=== PATIENT | female | born 1955 | race Caucasian/White ===

== ENCOUNTER 2020-12-14 11:57 | Emergency (ER) | payer BC ==
[~2020-12-14] VITALS: Ht 162.6 cm; Wt 51.3 kg
[~2020-12-14 11:57] MED LIST: CEFDINIR300 MG PO; CERAVE PO; PROZAC PO
[2020-12-14 12:27] LABS: ABSOLUTE NEUTROPHILS 7.8 thou/uL (1.4-8.2); BASOPHILS 0.6 % (0.0-2.0); EOSINOPHILS 0.4 % (0.0-3.0); HEMATOCRIT 37.5 % (37.0-47.0); HEMOGLOBIN 12.5 gm/dL (12.0-15.0); LYMPHOCYTES 10.3 % (24.0-44.0); MCH 36.3 pg (26.0-34.0); MCHC 33.3 g/dL (28.0-37.0); MCV 109.1 fL (80.0-100.0); MONOCYTES 9.3 % (1.0-8.0); PLATELET COUNT 375 thou/uL (150-400); POLYS 79.4 % (36.0-66.0); RBC 3.44 mil/uL (4.20-5.00); RDW 13.7 % (10.5-14.5); WBC 9.9 thou/uL (4.0-11.0)
[2020-12-14 12:34] LABS: CALCIUM 8.7 mg/dL (8.5-10.1); CREATININE 0.7 mg/dL (0.6-1.0); POTASSIUM 3.7 mmol/L (3.5-5.1)
[2020-12-14 12:39] LABS: URINE BILIRUBIN NEGATIVE (Negative); URINE BLOOD NEGATIVE (Negative); URINE CLARITY CLEAR; URINE COLOR YELLOW; URINE GLUCOSE-RANDOM* TRACE (Negative); URINE KETONES TRACE (Negative); URINE LEUKOCYTES-REFLEX TRACE (Negative); URINE NITRITE-REFLEX NEGATIVE (Negative); URINE PROTEIN (DIPSTICK) NEGATIVE (Negative); URINE SPECIFIC GRAVITY >= 1.030 (1.005-1.035); URINE UROBILINOGEN 0.2 E.U./dl (0.2-1.0)
[2020-12-14 13:36] LABS: ANISOCYTOSIS 1+; MACROCYTES 2+; PLATELET ESTIMATE NORMAL
[2020-12-14 16:23] VITALS: BP 94/62
--- NOTE | 2020-12-14 16:27 | EKG ---
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 : 1955 Requested By: Sandeep Vanessa Order Number: [id number] MD: Asad Elizabeth Measurements Intervals [facility] Rate: 97 P: MS: QRS: 24 QRSD: 118 T: -2 QT: 378 QTc: 480 Interpretive Statements Artifact, NSR Nonspecific intraventricular conduction delay Borderline low voltage, extremity leads Artifact in lead(s) III,V1,V2,V4,V5,V6 No previous ECG available for comparison Electronically Signed On 12-14-2020 16:27:21 CDT by Asad Elizabeth [email or web address] <ELECTRONICALLY SIGNED> By: Asad Elizabeth MD, [facility] 12/14/20 1627 1211 121 Asad Elizabeth MD, FACC /EPI
[2020-12-14] MEDS ORDERED: ATIVAN0.5 M1 PO (16:59)
[2020-12-14] MEDS ORDERED: VITAMIN D21250 MC1 PO (16:59)
[2020-12-14] MEDS ORDERED: SUPER THERAVIT1 EACH PO (17:05)
== END 2020-12-14 16:23 ==
LOC: ER 11:57
PROVIDERS: Nurse Practitioner
DX: R46.89 Other symptoms and signs involving appearance and behavior (principal); R44.0 Auditory hallucinations; R44.1 Visual hallucinations; Z90.49 Acquired absence of other specified parts of digestive tract; Z88.0 Allergy status to penicillin; Z79.899 Other long term (current) drug therapy

== ENCOUNTER 2020-12-14 15:37 | Inpatient (IN) | payer BC ==
[~2020-12-14] VITALS: Ht 162.6 cm; Wt 49.5 kg
[2020-12-14] MEDS ORDERED: VITAMIN D21250 MC1 PO (16:59)
[2020-12-14] MEDS ORDERED: ATIVAN0.5 M1 PO (16:59)
[2020-12-14] MEDS ORDERED: SUPER THERAVIT1 EACH PO (17:05)
--- NOTE | 2020-12-14 18:55 | NUR ---
1625 PATIENT ADMITED TO [facility] UNIT VIA CART. PATIENT ASSISTED X2 WITH TRANSFER TO BED. VS 117/88, 103, 18, 97.4, 98%. WT. 101.8. PATIENT LYING IN BED. LS CLEAR, BS ACTIVE. SKIN NOTED WITH BRUISING TO RIGHT FA AND LEFT ARM. WOUND NOTED TO COCCYX AREA PICTURES TAKEN. PATIENT CLEANED UP AND GOWN CHANGED. SMEAR OF BM NOTED. PATIENT SOFT SPOKEN AT TIMES ABLE TO ANSWER QUESTIONS. PATIENT CONFUSED, A & O X1 SELF ONLY UNAWARE OF WHY IN HOSPITAL. HAS A HX OF BREAST CA BILATERALLY. MDD,HTN, DYSPHASIA, SEASONAL ALLERGIES, HX OF TIA, ENCEPHALOPATHY. PATIENT RIGID WITH SLOW MOVEMENT. DENIES PAIN. VISUAL HALLUCINATION NOTED WITH PATIENT REACHING OUT GRABBING THE AIR. PATIENT STATES "I WAS TRYING TO CLOSE THAT". FALL RISK PRECATIONS IN PLACE WITH ARM BAND ON AND BED ALARM ON. PATIENT ATTEMPTS TO GET OUT OF BED. PATIENT TRANSFERED TO MONICA CHAIR WITH LAP BUDDING IN FRONT. DPJAVI CHRISTIE CALLED, LEFT MESSAGE DUE TO NO ANSWER. REPORT GIVEN TO NIGHT NURSE.
[2020-12-14 19:33] VITALS: BP 96/66
[2020-12-15 05:49] LABS: FOLIC ACID 7.6 ng/mL (8.6-58.9)
[2020-12-15 09:32] VITALS: BP 120/69
[2020-12-15 09:50] LABS: CHOLESTEROL 166 mg/dL (<200); HDL CHOLESTEROL 35 mg/dL (>40); LDL CHOLESTEROL 108 mg/dL (<100); TC:HDL 4.7 Ratio (Not establshd); TRIGLYCERIDE 115 mg/dL (<150); VLDL 23 mg/dL (<40)
--- NOTE | 2020-12-15 10:36 | NUR ---
WOUND CONSULT; ASSESSMENT OF THE SACRUM REVEALED ISOLATED ERYTHEMA TO THE SACRUM. THE AREA BLANCHES QUICKLY. NO OTHER AREAS OF CONCERN. RECOMMENDATIONS; -OFFLOADING Q2H AT A MINIMUM. -BARRIER WIPE TO THE SACRAL AREA, COVER WITH A BORDER FOAM, CHANGE M/W/F PRN DISCUSSED WITH MAIKEL
--- NOTE | 2020-12-15 12:31 | NUR ---
PATIENT CARE ASSUMED AT 0700 - IN DINING OROZCO IN MONICA CHAIR. PATIENT RESTLESS BUT CALM. EVALUATED BY OT/PT AND DETERMINED FINGER FOOD EASIER FOR PATIENT TO FEED SELF. SWALLOWING DIFFICULT WELL AND MEDICATIONS ADMINISTERED CRUSHED IN PUDDING THIS MORNING. PATIENT ASSESSED BY WOUND CARE AND SACRAL AREA DRESSING APPLIED. ADVISED BLANCHABLE AND NOT STAGED. AREA ON RIGHT BUTTOCK OLD WOUND THAT HAS HEALED - VISITED AND BROUGHT DPOA PAPERWORK. PLACED IN CHART. BECAME AGITATED WITH HIM - BLAMING HIM FOR HER ADMITTANCE TO OUR FACILITY. ASKED HIM TO LEAVE. PATIENT WORKED WITH OT - ADVISED WEIGHT BEARING ON LOWER EXTREMITIES AND CAN PULL SELF UP WITH BAR FOR SUPPORT. VITAL SIGNS STABLE THIS MORNING AT 120/69 WITH PULSE OF 88.
[2020-12-16 00:11] VITALS: BP 120/69
--- NOTE | 2020-12-16 02:08 | NUR ---
Assumed pt care at 1900. pt was oriented to self.Assessments completed, vss. took meds crushed with yogurt, no difficulty noted. pt was confused. There was no sign of acuted distress noted upon assessments. no sign of si/hi noted. compliant with care and medical aides teacher. At this time pt is sleeping. will continue to monitor pt
[2020-12-16 09:14] VITALS: BP 102/68; BP 92/68
[2020-12-16 09:35] LABS: URINE BILIRUBIN NEGATIVE (Negative); URINE BLOOD NEGATIVE (Negative); URINE CLARITY SL CLOUDY; URINE COLOR YELLOW; URINE GLUCOSE-RANDOM* NEGATIVE (Negative); URINE KETONES NEGATIVE (Negative); URINE LEUKOCYTES-REFLEX TRACE (Negative); URINE NITRITE-REFLEX NEGATIVE (Negative); URINE PROTEIN (DIPSTICK) TRACE (Negative)
--- NOTE | 2020-12-16 14:14 | NUR ---
Received awake on bed. Due medications given as prescribed- crushed and given with pudding; able to swallow w/o difficulty. Vital signs stable. With L sided weakness- assisted in ADLs. Falls bundle in place. On regular diet- assisted and encouraged in eating and drinking; aspiration precaution observed. On room air. Incontinent of bowel and bladder- checked frequently and changed as needed. Urine specimen needed for urinalysis- straight cath done as per protocol; done w/o difficulty- specimen obtained and sent to lab. With scar from prev ulcer at sacrum. No IV noted. No complains and signs of pain; chest pain, crushing sensation and heaviness. To continue monitoring patient.
[2020-12-16 19:53] VITALS: BP 94/65
--- NOTE | 2020-12-17 05:14 | NUR ---
PATIENT AOX1 CONFUSED AND FORGETFUL. PATIENT HAD NOT VOIDED FOR >8 HOURS BLADDER SCAN DONE, PATIENT HAD 390ML CALLED MAINTENANCE FITTER NEW ORDER TO STRAIGHT CATH X1. PATIENT NEEDS MAXIMUM ASSISTANCE WITH ADL, BED MOBILITY, TRANSFER AND TOILETING. PATIENT IN DAY ROOM ASLEEP AT THIS TIME BREATHING REGULAR AND UNLABOURED.
[2020-12-17 09:54] VITALS: BP 116/94
[2020-12-17 11:16] VITALS: BP 116/94
--- NOTE | 2020-12-17 11:25 | NUR ---
ASSUMED CARE AT 0700 THIS MORNING. PT. SITTING IN RECLINING CHAIR. SHE WAS PLEASANT AND COOPERATIVE WITH TAKING HER MEDICATIONS. THEY WERE CRUSHED AND PUT IN APPLESAUCE. SHE NEEDS HELP WITH TOILETING, EATING AND DAILY CARE. WAS ON THE UNIT DURING MORNING MEETING. NO NEW PROBLEMS NOTED OR VOICED.
[2020-12-17 19:19] VITALS: BP 101/67
--- NOTE | 2020-12-18 03:59 | NUR ---
ASSUMED CAER OF PT AT SHIFT CHANGE. PT IS AOX1 AND IS CONFUSED. FALL PRECAUTION IN PLACE. NEEDS MUST BE ANTICIPATED. ASSESSMENT CHARTED. PT IS RETAINING URINE >500ML. PT WAS STRAIIGHT CATHED PER ORDER. PT TOOK ALL HS MEDS CRUSHED IN PUDDING. PT APPERS TO BE COMFORTABLE. VSS AND NO S/S OF ACUTE DISTRESS. WILL CONTINUE TO MONITOR.
[2020-12-18 09:12] VITALS: BP 80/55
[2020-12-18 12:07] VITALS: BP 80/55
[2020-12-18 12:26] VITALS: BP 80/55
--- NOTE | 2020-12-18 12:34 | NUR ---
ASSUMED CARE AT 0700 THIS MORNING. PT. IN RECLINING CHAIR. SHE IS SITTING QUIETLY TALKING TO HERSELF. SHE INITIALLY WAS SHOWING SOME AGITATION WITH THAT. SHE TOOK HER MEDS WITH SOME COERSION FROM STAFF. SHE ALSO GOT MOST OF HER EGGS DOWN FROM BREAKFAST. SHE UNDERSTANDS CONVERSATION OF STAFF. SHE CAN ANSWER OUR QUESTIONS WITHOUT PROBLEMS. SHE SLIDES DOWN IN HER CHAIR REQUIRING STAFF TO HELP HER SIT UP IN THE CHAIR. WILL CONTINUE TO MONITOR.
--- NOTE | 2020-12-18 14:05 | NUR ---
BENNY was able to talk to The Pt's Moncho. A family meeting was scheduled for 12/20/20 @ 1400. Moncho informed the couple currently live at [facility] in [place]. Moncho was hopefully that [facility] memory care could be a possiblity for placement when the Pt discharges. BENNY informed that a referral can always be sent to the facility. Moncho was happy to hear that and informed the Pt would be private pay. Benny will continue to follow up
--- NOTE | 2020-12-18 14:13 | NUR ---
SW reached out to the admissions department at [facility]. They are aware of this Pt. They informed that if Pt is in need of skilled or memory care they are able to accept upon discharge. SW will continue to follow up.
[2020-12-18 17:06] VITALS: BP 95/68
[2020-12-18 20:01] VITALS: BP 102/76
[2020-12-18 21:00] VITALS: BP 102/76
--- NOTE | 2020-12-19 02:15 | NUR ---
Assumed pt care at 1900. Pt sleepy but easily arousable on the reclining chair,often sliding off the chair. VSS. Denied pain on assessment. Took HS meds crushed in icecream with a lot of prompts. Pt constipated with hard Bm around rectum,palpated around sides and able to get it out;Lg hard formed. Lactulose given as ordered. Incontinent of B&B. Resting in bed w/o any distress,will continue to monitor pt.
[2020-12-19 08:58] VITALS: BP 97/61
--- NOTE | 2020-12-19 11:29 | NUR ---
Alert and orientated to name only. Denies SI/HI. Calm, cooperative and compliant. Denies SI/HI. Breath sounds clear. Reg HR auscultated. Color pale pink with brisk capillary refill and palpable perhipheral pulses. Brief dry. Active bowel sounds over soft, flat abdomen. Large firm, constipated stool this AM per report. Redness over lower back and in sacrum area, cleaned with NS. Placed in gerichair with chair alarm in place.
--- NOTE | 2020-12-19 14:33 | NUR ---
Per ASPHALT PAVING SUPERINTENDENT, pt has voided X 3 today. Bladder scan done: 138 cc. Small brown soft stool per brief with flatulence. Cleaned and zguard applied. Turned to L in recliner and positioned with pillows. No s/o distress.
[2020-12-19 19:02] VITALS: BP 92/58
--- NOTE | 2020-12-20 04:58 | NUR ---
12-19-20 CARE TRANSFERRED 1899 OBSERVED PT SITTING MONICA CHAIR IN DAY ROOM. LATER PT AAOX1, VSS, RR EVEN AND NONLABORED ON RA, OBSERVED NO S/S OF PAIN AND NO SI/HI BEHAVIORS. PT ARTICULATES FEW WORDS, BUT HAS BEEN CLAM AND COOPERATIVE, PT DRANK 240ML OF WATER. DURING MEDICATION ADMIN PT HAD NO DIFFICULTIES TAKING WHOLE WITH PUDDING AND ATE 100%; LATER PT STATED SHE WAS HUNGRY AND SHE ATE ICE CREAM CUP. LATER PT WAS ASSISTED TO ROOM AND BLADDER SCANNED 119ML AND NOTED YELLOW URINE IN BRIEF AND SCANT AMOUNT OF POOP, PT WAS CLEAN WITH SOAP AND RINSED WITH WATER AND BARRIER CREAM APPLIED, NOTED REDNESS IN COCCYX AREA. PT HAS BEEN LEFT OPEN TO AIR ON CHUX. LATER NOTED PT RESTING WITH EYES CLOSED. ZERO S/S OF ACUTE DISTRESS NOTED, PT WILL CONTINUE TO BE MONITOR PER [facility] PROTOCOL.
[2020-12-20 08:00] VITALS: BP 92/58
--- NOTE | 2020-12-20 11:18 | NUR ---
WOUND CARE F/U ASSISTED BACK TO ROOM W/ INSURANCE SALES ASSISTANT LYNN RUSHING TO ASSESS SACRAL AREA. PT AWAKE, COOPERATIVE, AREA SLIGHTLY ATNOLIN SACRAL AREA, BLANCHES WELL. NO S/S INFECTION NO DRAINAGE, ZGUARD APPLIED, PER STAFF PT INCONT AT TIMES, SITTING ON GEL CUSION RECOMMENDATIONS; CONT PRESSURE RELIEF MEASURES, OFF LOADING, NOT SITTING LONG PERIODS, CONT CURRENT TX PROTECTIVE CREAM BID AND PRN INSURANCE SALES ASSISTANT AWARE
--- NOTE | 2020-12-20 12:25 | NUR ---
Alert and orientated to name only. Confused speech and also repeating things heard in dining room. Denies SI/HI. Ambulates with walker with assistance with steady gait. Breath sounds clear. Reg HR auscultated. Color pink with brisk capillary refill and palpable peripheral pulses. Brief dry. Bladder scanned at 1100, 191-202. States she does not need to toilet at this time. Active bowel sounds over soft, flat abdomen. Reddened area mid back and in sacral area. Cleaned and Zguard applied.
--- NOTE | 2020-12-20 13:40 | NUR ---
RT Progress Note- Memo's presence in recreation therapy groups since her admission to [facility] has been limited. Memo's energy level has been poor and she has been asleep for many groups. It is noted however that throughout the last two review days, Memo has been alert for groups though she does not actively engage. BLOCK BREAKER will continue to encourage pts attendance and further participation throughout the next review period.
[2020-12-20 19:02] VITALS: BP 88/62
--- NOTE | 2020-12-20 21:26 | H ---
[facility] [place] [address] HISTORY AND PHYSICAL Name: SKINNY CHRISTIE Room #: 519B-B ADM IN M.R.#: [id number] Admission: 12/14/20 Attend Phys: Adele Mustafa DO Discharge: Date of : 59 Report #: [id number] THIS REPORT FOR: cc: Richard Abdul MD, Christopher B. MD Kerstein, Andrew H. DO ~ DOC #: [id number] ADELE Mustafa DO DATE OF SERVICE: 12/15/2020 ATTENDING PSYCHIATRIST: Adele Mustafa DO RENTAL CLERK: Jordana Hood NP, and Darin Claire M.D. and his hospitalist team. SOURCES OF INFORMATION: Telephone conversation with the yesterday in the emergency room, with nurse practitioner, Sandeep Vanessa. The patient is a very poor historian and could not give any reasonable history or information to me today. We have limited records from the [facility], which happens to be very close to [facility]. CHIEF COMPLAINT: Unspecified. HISTORY OF PRESENT ILLNESS: This is a 65-year-old female, [facility] She reportedly had been there in the 2-3 day range. On 12/14/2020, her nurse practitioner, Shon Castillo, who collaborates with Dr. Richard Abdul, did a gisell that she lacks mental capacity to make independent legal medical and financial decisions. Medications from [facility] were cefdinir, ergocalciferol, lorazepam, multivitamin, . Her history from the nursing facility were encephalopathy complicated with alcohol withdrawal. Reportedly, prior to admission to [facility], she spent 2 weeks or so at [facility] for alcohol detoxification. She has a history of major depression, generalized anxiety disorder, dysphagia, history of unspecified malignant neoplasm, drug-induced tremor, vitamin D deficiency, anorexia. There is also a presence of a urogenital implant. Her is her DPOAMoncho with the other documentation. His number is #[phone]. I called him today and was not able to reach him. ALLERGIES: PENICILLINS. Additional information from the patient's ER stay is she has [facility] [address] [place] [address] HISTORY AND PHYSICAL Name: PRATIKSKINNY Room #: 519B-B ADM IN M.R.#: [id number] Admission: 12/14/20 Attend Phys: Adele Mustafa DO Discharge: Date of : 59 Report #: [id number] history of alcoholism, several hallucinations and falls over the last 2 days. Haylie wanted to send for a psychiatric evaluation. Reportedly, she had been drinking "three" shots a day. In the ER yesterday, I discussed with the over the phone if it indeed had been several weeks since she had any alcohol. I explained that the treatment would be different if she was in acute alcohol withdrawal. PAST SURGICAL HISTORY: Cholecystectomy, bladder sling, tracheostomy. MEDICAL HISTORY: Stroke, breast cancer. SOCIAL HISTORY: No recreational drug use. Smoking history was denied, but patient is able to accurately report. REVIEW OF SYSTEMS: Impossible with this patient. Weight is 45.586 kilos, BMI 17.3. Grossly negative physical exam. EKG showed atrial fibrillation, rate of 97. Non-STEMI. LABORATORY DATA: Sodium 143, potassium 3.7, chloride 108, bicarbonate 27, anion gap 8, BUN 7, creatinine 0.7, estimated GFR 85, glucose 92, calcium 8.7. Ammonia less than 10. White cell count 9.9, H&H 12.5 and 37.5, MCV very high at 109, platelet count 375. She did have some anisocytosis and macrocytic cells. COVID-19 Abott test was negative. Urinalysis had trace leukocyte esterase, trace glucose, trace ketones, otherwise negative. MEDICATIONS: Currently in the hospital, trazodone 50 mg p.o. at bedtime, Haldol 1 mg p.o. 3 times a day, vitamin daily, folic acid daily, vitamin D 5000 international units daily, pantoprazole 40 mg p.o. daily, cefdinir 300 mg p.o. b.i.d. Otherwise, house PRNs. Additional history is limited with this patient. Medical history, hypertension; CVA, unclear time; dysphagia. She does have a possible decubitus wound, but was checked by wound care and was non-blanchable on her sacrum; history of breast cancer, status post bilateral mastectomy; also, severe protein-calorie malnutrition. PSYCHIATRIC HISTORY: Includes alcoholism, major depressive disorder. Also, she is obviously psychotic grossly at this point, not making sense, not able to communicate. PHYSICAL EXAMINATION: [facility] [address] [place] [address] HISTORY AND PHYSICAL Name: SKINNY CHRISTIE Room #: 519B-B ADM IN Tiki#: [id number] Admission: 12/14/20 Attend Phys: Adele Mustafa DO Discharge: Date of : 59 Report #: [id number] VITAL SIGNS: Today, temperature 36.0, pulse 88, respirations 18, BP 120/69, O2 sat 97%. MUSCULOSKELETAL: Nonambulatory in a Kia chair. MENTAL STATUS EXAMINATION: This is a poorly nourished ill-appearing female appearing much older than stated age. Attention impaired. Concentration impaired. Speech nonsensical. Frequently told me it was when it was Friday. Unable to state the month for sure. Attention and concentration impaired. Speech, increased rate. mood- unspecified, affect constricted Thought process linear, but very limited. Thought content disorganized, relative poverty of thought. No psychomotor agitation, no psychomotor retardation. Unable to question well for suicidality, homicidality, or auditory, visual, tactile hallucinations, but internal stimuli are possible. Memory is noted to be impaired, not formally tested. Insight impaired. Judgment impaired. Fund of knowledge well below average. FORMULATION: A 65-year-old female sent over from [facility] with complications, likely relating to alcoholism and complicated alcohol withdrawal. DIAGNOSES: At this time, unspecified psychosis, rule out alcohol-induced persisting psychosis, rule out major neurocognitive disorder due to alcoholism. Medical comorbidities are multiple and include history of hypertension, CVA, dysphagia, breast cancer, encephalopathy. PLAN: The patient is admitted to geriatric psychiatry. She is incapacitated for healthcare decisions. Her DPOA is enacted. Her , Moncho, made admission decision. We will evaluate and stabilize her. I have her on an increased dose of Haldol today. We will see how she eats and does over the next several days. Estimated length of stay 10 to 14 days. The patient may need a memory care placement if she does not improve. Voicemail left for . STRENGTHS: Insured, DPOA. WEAKNESSES: Alcoholism, likely early dementia, poor coping skills. ADDENDUM: Got an information sheet, her family provided. to Mars Christie on 01/13/1988. Daughter Consuelo Christie, born 05/05/1989. Patient is a very nice person. She loves to be around other people and pets. 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 States unfortunately within a week of giving to her daughter, patient suffered a severe stroke that doctors feared that [facility] [address] [place] [address] HISTORY AND PHYSICAL Name: SKINNY CHRISTIE Room #: 519B-B ADM IN M.R.#: [id number] Admission: 12/14/20 Attend Phys: Adele Mustafa DO Discharge: Date of : 59 Report #: [id number] she would not survive, but she did survive after 3 months of rehabilitation at [facility] in [place], [place]. She was able to go home and continue to recovery with the help of friends and family. Other procedures related to her stroke included tracheostomy and gallbladder removal; in 2012 patient was diagnosed with breast cancer and suffered through a bilateral mastectomy, followed by breast reconstruction. Then in 2013, we discovered a tumor in her left calf, she had surgically removed, but was benign. In 2014, patient fell while walking for exercise and pleasure. She broke her left arm at the elbow. It took 3 surgeries to repair the elbow and she has a metal brace under the skin of her elbow. She ended up with one of those nasty viruses, not the really bad virus, but required a long marin to get rid of it. In 2019, her lumber hacker removed a growth in her nose, also benign that had to be surgically removed. The patient has always enjoyed alf by shopping. She loves others and enjoys being around them in a more or less social situation. She has also always been a light drinker, but somehow has never addressed to the fact that after her stroke, she could not handle alcohol like she could before, but she did not drink all that much and almost always in the evening after dinner to ease into her evening and to sleep. Unfortunately, COVID destroyed her life, everything was closed and she could no longer go shopping. She seemed to adjust pretty well to the isolation that the virus demanded of her, something happened this, 08/2020, one day she woke up a different person. I do not know what it was, perhaps a mild stroke. She started drinking all the time, lost control of her arms and legs and other bodily functions. Her daughter and I finally talked to her to go into the hospital where she was able to withdraw from alcohol, but she still needs rehabilitation to rebuild her strength and her bodily functions. She probably also needs continued rehabilitation to help with her alcohol addiction. This was authored by her . DO FAITH Zuñiga/JERMEY/ADEOLA Appended Mortar Mixer - Dictated on 12/15/2020 4:30:01 PM ADDENDUM: Got an information sheet, her family provided. to Mars Christie on 01/13/1988. Daughter Consuelo Christie, born 05/05/1989. Patient is a very nice person. She loves to be around other people and pets. One of her loves is . 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 States unfortunately within a week of giving to her daughter, patient suffered a severe stroke that doctors feared that [place] [id number] HISTORY AND PHYSICAL Name: SKINNY CHRISTIE Room #: 519B-B [facility] IN M.R.#: [id number] Admission: 12/14/20 Attend Phys: Adele Mustafa DO Discharge: Date of : 59 Report #: [id number] she would not survive, but she did survive after 3 months of rehabilitation at [facility] in [place], [place]. She was able to go home and continue to recovery with the help of friends and family. Other procedures related to her stroke included tracheostomy and gallbladder removal; in 2012 patient was diagnosed with breast cancer and suffered through a bilateral mastectomy, followed by breast reconstruction. Then in 2013, we discovered a tumor in her left calf, surgically removed, but was benign. In 2014, patient fell while walking for exercise and pleasure. She broke her left arm at the elbow. It took 3 surgeries to repair the elbow and she has a metal brace under the skin of her elbow. She ended up with one of those nasty viruses , not the really bad virus, but required a long marin to get rid of it. In 2019, her lumber hacker removed a growth in her nose, also benign that had to be surgically removed. The patient has always enjoyed alf by shopping. She loves others and enjoys being around them in a more or less situation. She has also always been a light drinker, but somehow has never addressed to the fact that after her stroke, she could not handle alcohol like she could before, but she did not drink all that much and almost always in the evening after dinner to ease into her evening and to sleep. Unfortunately, COVID destroyed her life, everything was closed and she could no longer go shopping. She seemed to adjust pretty well to the isolation that the virus demanded of her, something happened this, 08/2020, one day she woke up a different person. I do not know what it was, perhaps a mild stroke. She started drinking all the time, lost control of her arms and legs and other bodily functions. Her daughter and I finally talked to her to go into the hospital where she was able to withdraw from alcohol, but she still needs rehabilitation to rebuild her strength and her bodily functions. She probably also needs continued rehabilitation to help with her alcohol addiction. This was authored by her . ADELE Mustafa DO <ELECTRONICALLY SIGNED> By: Adele Mustafa DO 12/20/20 2126 1523 1900 dAele Mustafa DO /nt
--- NOTE | 2020-12-20 21:34 | H ---
[facility] [place] [address] HISTORY AND PHYSICAL Name: SKINNY CHRISTIE Room #: 519B-B ADM IN M.R.#: [id number] Admission: 12/14/20 Attend Phys: Adele Mustafa DO Discharge: Date of : 59 Report #: [id number] THIS REPORT FOR: cc: Richard Abdul MD, Christopher B. MD Kerstein, Andrew H. DO ~ DOC #: [id number] ADELE Mustafa DO DATE OF SERVICE: 12/14/2020 ADDENDUM: Got an information sheet, her family provided. to Mars Christie on 01/13/1988. Daughter Consuelo Christie, born 05/05/1989. Patient is a very nice person. She loves to be around other people and pets. She is an avid trolley collector of pictures, figurines, anything. States unfortunately within a week of giving to her daughter, patient suffered a severe stroke that doctors feared that she would not survive, but she did survive after 3 months of rehabilitation at [facility] in [place], [place]. She was able to go home and continue to recovery with the help of friends and family. Other procedures related to her stroke included tracheostomy and gallbladder removal; in 2012 patient was diagnosed with breast cancer and suffered through a bilateral mastectomy, followed by breast reconstruction. Then in 2013, we discovered a tumor in her left calf, surgically removed, but was benign. In 2014, patient fell while walking for exercise and pleasure. She broke her left arm at the elbow. It took 3 surgeries to repair the elbow and she has a metal brace under the skin of her elbow. She ended up with one of those nasty viruses , not the really bad virus, but required a long marin to get rid of it. In 2019, her acupuncture physician removed a growth in her nose, also benign that had to be surgically removed. The patient has always enjoyed half-way by shopping. She loves others and enjoys being around them in a more or less situation. She has also always been a light drinker, but somehow has never addressed to the fact that after her stroke, she could not handle alcohol like she could before, but she did not drink all that much and almost always in the evening after dinner to ease into her evening and to sleep. Unfortunately, COVID destroyed her life, everything was closed and she could no longer go shopping. She seemed to adjust pretty well to the isolation that the virus demanded of her, something happened this, 08/2020, one day she woke up a different person. I do not know what it was, perhaps a mild stroke. She started drinking all the time, lost control of her arms and legs and other bodily functions. Her daughter and I finally talked to her to go into the hospital where she was able to withdraw from alcohol, but she still needs rehabilitation to rebuild her strength and her bodily functions. She probably also needs continued rehabilitation to help with her alcohol addiction. This was authored by her [facility] [address] [place] [address] HISTORY AND PHYSICAL Name: SKINNY CHRISTIE Room #: 519B-B ADM IN M.R.#: [id number] Admission: 12/14/20 Attend Phys: Adele Mustafa, DO Discharge: Date of : 59 Report #: [id number] . DO FAITH Zuñiga/ROSE MARY/FIDELINA <ELECTRONICALLY SIGNED> By: Adele Mustafa DO 12/20/20 [id number] Adele Mustafa DO /nt
--- NOTE | 2020-12-21 03:44 | NUR ---
ASSESSED AT START OF SHIFT PT RESTING IN CHAIR. EVENING MEDS GIVEN AND PT LYN IT WELL. INCONTINENT OF BOWEL AND BLADDER. HAD A BM SMEAR OVER NIGHT PERICARE GIVEN. PT ALERT TO SELF, CONFUSED AND FORGETFULL. BLADDER SCAN DONE 48CC NO STRAIGHT CATH REQUIRED. PT UP WITH ASSIST X2 WITH TRANSFERS. FALL PRECAUTIONS MAINTAINED. NO FURTHER SIGNS OF DISCOMFORT WILL CONT TO MONITOR.
[2020-12-21 07:26] VITALS: BP 89/60
[2020-12-21 11:48] LABS: HEMATOCRIT 36.3 % (37.0-47.0); MCV 109.2 fL (80.0-100.0); RBC 3.33 mil/uL (4.20-5.00); RDW 13.7 % (10.5-14.5); WBC 7.2 thou/uL (4.0-11.0)
[2020-12-21 11:53] LABS: CALCIUM 8.6 mg/dL (8.5-10.1); CREATININE 0.6 mg/dL (0.6-1.0)
[2020-12-21 12:00] LABS: ALBUMIN 2.7 g/dL (3.4-5.0); TOTAL BILIRUBIN 0.3 mg/dL (0.2-1.0); TOTAL PROTEIN 6.4 g/dL (6.4-8.2)
[2020-12-21 12:04] LABS: INR 0.99; PROTIME 10.8 Seconds (10.5-12.1)
--- NOTE | 2020-12-21 12:32 | NUR ---
KARMA spoke with Joanna in admissions at [facility]. Joanna informed she has submitted the authorization for skilled to [facility] and is waiting on approval.
[2020-12-21 12:52] VITALS: BP 89/60
--- NOTE | 2020-12-21 14:48 | NUR ---
Assumed pt care at 0700. Pt was oriented to person. calm and co-operative with care. Assessments completed vss. pt took meds whole, no difficulty noted. pt ambulates with a beau chair. incontinent of bowel and bladder. pt was confused. No sign of acute distress noted upon assessments. No sign of si/hi noted. There is no c/o pain at this time. OT noted a bright red blood with stool after wiping pt bottom. Dr Pena notified. GI RONAN Conway assessed pt. At this time pt is in the day room watching TV. will continue to monitor.
--- NOTE | 2020-12-21 19:43 | NUR ---
At 1430 bladder scanned 50ml. pt have been be voiding since then
[2020-12-21 19:46] VITALS: BP 112/76
--- NOTE | 2020-12-22 04:30 | NUR ---
ASSESSMENT: PT REMAIN ALERT TIMES ONE, CONFUSED TO PLACE, TIME AND SITUATION. PLEASANT AND FOLLOW SIMPLE COMMANDS. TOOK MEDS WHOLE IN PUDDING WITHOUT DIFFICULTY. VSS, AFEBRILE. INCONT TO URINE TIMES 3, DID HAVE A SMEAR OF STOOL. OCCULT STOOL STILL PENDING. VSS, AFEBRILE. SLEPT MOST OF THE NIGHT. DID NOT ATTEMPT TO EXIT BED. SLOW PROGRESS TOWARDS DC GOALS. WILL CONTINUE TO MONITOR.
[2020-12-22 05:34] LABS: HEMATOCRIT 34.5 % (37.0-47.0); HEMOGLOBIN 11.4 gm/dL (12.0-15.0)
[2020-12-22 10:21] VITALS: BP 108/65
[2020-12-22 10:51] VITALS: BP 108/65
--- NOTE | 2020-12-22 15:44 | NUR ---
KARMA call Moncho to request he call the insurance company concerning the approval for residential. Moncho was in agreement and stated he has been working with a hospice case manager with the insurance company he can call to assist. KARMA also spoke with Joanna at [facility]. Joanna informed she continues to work with [facility] on the proper approval. KARMA will continue to follow up
--- NOTE | 2020-12-22 17:06 | NUR ---
Assumed pt care at 0700. pt was oriented to self. Calm and co-operative with care. Assessments completed, vss. no sign of acute distress noted upon assessments. pt took meds whole, no difficulty noted. Ambulates with a Kia chair. pt was incontinent x4 this shift. Stool sample collected, sent to lab. no blood noted in stool. No sign of si/hi noted on pt. No c/o of pain this shift.At this time pt is eating dinner. will continue to monitor pt.
[2020-12-22 19:43] VITALS: BP 86/62
--- NOTE | 2020-12-23 03:34 | NUR ---
patient aox1 confused and forgetful. patient incontinent this shift pericare and barrier cream applied as needed. patient has a flat affect, poor eye contact. fall precaution in place. patient in day room asleep breathing regular and unlaboured.
[2020-12-23 09:11] VITALS: BP 86/56
[2020-12-23 12:30] VITALS: BP 86/56
--- NOTE | 2020-12-23 12:39 | NUR ---
Assumed pt care at 0700. pt was alert and oriented to self, forgetful. Assessments completed, vss. took meds crushed in yogurt. denies si/hi. denies pain at this time. No sign of acute distress noted upon assessments. calm co-operative with care. ambulates with MONICA chair. Gi DR assessed pt this shift. Meds administered as ordered. Will continue to monitor pt.
--- NOTE | 2020-12-23 16:34 | NUR ---
SW visited with the Pt in the main room. Pt stated she was doing "ok". Pt stated she had finished breakfast and was full. Pt seemed more alert and talkative this morning. Pt did not verbalize an concerns. Pt denied SI/HI. SW will continue to follow
[2020-12-23 16:56] LABS: ABSOLUTE NEUTROPHILS 7.2 thou/uL (1.4-8.2); BASOPHILS 1.2 % (0.0-2.0); EOSINOPHILS 1.9 % (0.0-3.0); HEMATOCRIT 34.6 % (37.0-47.0); HEMOGLOBIN 11.8 gm/dL (12.0-15.0); LYMPHOCYTES 10.1 % (24.0-44.0); MCHC 34.2 g/dL (28.0-37.0); MCV 108.2 fL (80.0-100.0); MONOCYTES 8.1 % (1.0-8.0); PLATELET COUNT 337 thou/uL (150-400); POLYS 78.7 % (36.0-66.0); RDW 13.8 % (10.5-14.5); WBC 9.1 thou/uL (4.0-11.0)
[2020-12-23 17:10] LABS: ALBUMIN 2.7 g/dL (3.4-5.0); CREATININE 0.6 mg/dL (0.6-1.0); POTASSIUM 4.2 mmol/L (3.5-5.1); TOTAL BILIRUBIN 0.2 mg/dL (0.2-1.0); TOTAL PROTEIN 6.3 g/dL (6.4-8.2)
[2020-12-23 20:46] VITALS: BP 84/54
[2020-12-24 00:47] VITALS: BP 84/54
--- NOTE | 2020-12-24 01:06 | NUR ---
Assumed care on 12/23/20 @ 19:15, A&Ox1 to name only, cofused and forgetful, no s/s of SI/HI. Repeats what she hears being said. Takes meds crushed and compliant with medication. Fall precautions in place, chair alarm under patient while sitting in the day room. Incontinent of B&B, Z Guard applied to sacrum. Will continue to monitor for safety and comfort as per unit protocol.
[2020-12-24 05:39] LABS: BASOPHILS 0.6 % (0.0-2.0); EOSINOPHILS 2.3 % (0.0-3.0); HEMOGLOBIN 11.9 gm/dL (12.0-15.0); LYMPHOCYTES 13.3 % (24.0-44.0); MCH 36.2 pg (26.0-34.0); MCHC 33.1 g/dL (28.0-37.0); MCV 109.3 fL (80.0-100.0); MONOCYTES 8.4 % (1.0-8.0); PLATELET COUNT 353 thou/uL (150-400); POLYS 75.4 % (36.0-66.0); RDW 13.8 % (10.5-14.5); WBC 7.9 thou/uL (4.0-11.0)
[2020-12-24 05:45] LABS: CALCIUM 8.7 mg/dL (8.5-10.1); CREATININE 0.5 mg/dL (0.6-1.0)
[2020-12-24 09:09] VITALS: BP 104/59
[2020-12-24 09:11] VITALS: BP 104/59
--- NOTE | 2020-12-24 13:58 | NUR ---
Assumed pt care at 0700, pt was sleepy this morning but she did wake up and talk with this nurse, pt ate breakfast okay and took medications crushed with applesauce, Pt takes small bites. Pt did have a visit from her family and perked up after that visit. Pt tends to fidget by pulling off her socks. Pt is alert to self, denies SI/HI, auditory or visual hallucinations.
--- NOTE | 2020-12-24 14:59 | NUR ---
Assist TRANSPORT PILOT with toileting, pt is still voiding okay. brief was wet. Assessed pt skin, pt still has excoriation on sacral area, reddened, wander care provided and Z hever applied. Will continue to monitor pt.
[2020-12-24 18:53] VITALS: BP 82/56
--- NOTE | 2020-12-25 05:04 | NUR ---
12-24-20 CARE TRANSFERRED 1899 OBSERVED PT SITTING IN RECLINER IN DAY ROOM. LATER PT AAOX1, VSS, RR EVEN AND NONLABORED ON RA. PT PRESENTS CALM AND COOPEATIVE, PT HAS DIFFICULTIE ARTICULATING THOUGHTS INTO WORDS, SPEACH IS OFTEN GARBLED. OBSERVED NO S/S OF PAIN AND NO SI/HI BEHAVIORS. LATER PT BLADDER SCANNED 55ML, NOTED HEAVY BRIEF WITH YELLOW URINE AND MEDIUM BROWN BM, PT WAS CLEANED WITH SOAP AND WATER AND ZGARD WAS USED IN COCCYX AREA R/T REDNESS. ZERO S/S OF ACUTE DISTRESS NOTED, PT WILL CONTINUE TO MONITOR PER [facility] PROTOCOL.
[2020-12-25 09:58] VITALS: BP 94/66
[2020-12-25 11:53] VITALS: BP 120/64
--- NOTE | 2020-12-25 13:15 | NUR ---
1315 RESUMMED CARE FROM OVERNIGHT SHIFT THIS AM, PATIENT IN DAY ROOM IN MONICA CHAIR QUIET. PATIENT UNABLE TO TELL ME ABOUT SI/HI/AH/VH AT PRESENT DUE TO COGNITIVE DO. PATIENTS ALERT ORIENTED TO SELF ONLY PATIENTS ABDOMNEN SOFT BOWEL SOUNDS PRESENT. PATIENTS LUNGS CLEAR PATIENT HAS NOT DISPLAYED ANY BEHAVIORS. PATIENTS BLADDER SCAN [address] YATES WOULD LIKE THOMAS BP'S ON PATIENT. WILL CONTINUE TO MONITOR PATIENT FOR SAFETY AND BEHAVIORS.
[2020-12-25 19:45] VITALS: BP 86/55
--- NOTE | 2020-12-26 04:11 | NUR ---
12-25-20 CARE TRANSFERRED 0 OBSERVED PT SITTING IN RECLINER IN DAY ROOM. LATER PT AAOX1, VSS, RR EVEN AND NONLABORED ON RA. OBSERVED NO S/S OF PAIN OR SI/HI BEHAVIORS. PT PRESENTS PLEASNT, CALM AND COOPERATIVE BUT HAS TROUBLE ARTICULATING THOUGHTS INTO WORDS. PT DRANK 240ML WATER. DURING MEDICATION ADMIN PT HAD NO DIFFICULTIES TAKING MEDICATION IN CRUSHED IN PUDDING AND ATE 100% OF PUDDING CUP. LATER PT HAD HEAVY URINE SOAKED BRIEF, PT WAS CLEAN WITH SOAP AND WATER, Z-GUARD WAS APPLIED, AND PT WAS LEFT OPEN TO AIR, ON CHUX. PT BED WAS ADJUSTED FOR COMFORT. PT ZERO S/S OF ACUTE DISTRESS NOTED, PT WILL CONTINUE TO BE MONITOR PER [facility] PROTOCOL.
[2020-12-26 13:06] VITALS: BP 96/64
--- NOTE | 2020-12-26 18:00 | NUR ---
0700 ASSUMED CARE OF PATIENT, PATIENTIN BED AT THAT TIME. OT HERE TO WORK WITH PATIENT. OUT TO DAYROOM FOR BREAKFAST. MEDICATIONS GIVEN CRUSHED IN PUDDING AND TAKEN WITHOUT DIFFICULTY. PATIENT CALM AND QUIET. PATIENT CONFUSED. PATIENT NOTED MUMBLING AT TIMES. ABD SOFT WITH ACTIVE BS, LS CLEAR. VS 84/53 96, 18 96.9 94%. PATIENT VOIDED X3 IN BRIEF. DR MENDOZA HERE AND VERBAL ORDER TO DC BLADDER SCAN BID TO PRN. CHAIR ALRM IN PLACE WITH FALL PRECATIONS. WILL CONTINUE TO OBSERVE
[2020-12-26 20:30] VITALS: BP 96/64
--- NOTE | 2020-12-27 03:05 | NUR ---
PATIENT WAS UP IN DINING ROOM AT A TABLE IN HER MONICA CHAIR THIS EVENING. CHAIR ALARM ON AND IN PLACE. SHE WAS SMILING AND ASKED IF SHE WAS GOING TO GET HER MEDS. MOST OF HER HER WORDS ARE GARBLED OR HARD TO UNDERSTAND BUT SHE DID HAVE A FEW SENTENCES THAT CAME OUT CLEAR TONIGHT. SHE TOOK HER MEDS WHOLE WITH WATER WITHOUT INCIDENT. SHE DENIES PAIN. NO SIGN OF SI/HI/AVH NOTED. INCONTINENCE CHECKS AND TOILETING DONE ROUTINELY AND PRN. PATIENT HAS SOAKED 2 BRIEFS THIS EVENING AND IS VOIDING WITHOUT DIFFICULTY. NO BLADDER SCAN NEEDED TONIGHT. SHE WAS ASSISTED TO BED AND IS IN COMFORTABLE POSITION WITH EYES CLOSED. HER BED IS IN LOW POSITION AND BED ALARM IS ON. ROUTINE ROUNDS TO ASSESS SAFETY AND STATUS OF PATIENT. CONTINUING TO MONITOR.
[2020-12-27 07:15] VITALS: BP 129/68
--- NOTE | 2020-12-27 19:30 | NUR ---
0700 ASSUMED CARE OF PATIENT, PATIENT IN MONICA CHAIR AT THAT TIME. PATIENT CALM AND COOPERATIVE. ALERT AND ORIENTED X3. MEDICATION TAKEN WHOLE WITHOUT DIFFICULTY. UP AMB WITH ASSIST X1 TO BR VOIDED WITH BM X2 LG. ZGURAD APPLIED TO BOTTOM. FLUIDS GIVEN.
[2020-12-27 20:00] VITALS: BP 128/68
--- NOTE | 2020-12-28 04:46 | NUR ---
12-27-20 CARE TRANSFERRED 1914 OBSREVED PT SITTING IN RECLINER IN DAY ROOM. LATER PT AAOX1, VSS, RR EVEN AND NONLABORED RA. PT DENIES SI/HI AND PAIN. NOTED PT IMPROVING IN VERBAL RESPONSE. PT PRESENTS PLEASANT WITH CONFUSION, BUT HAS REMAINED CALM AND COOPERATIVE. DURING MEDICATION PT ATE 100% OF PUDDING CUP. LATER PT WAS ASSISTED TO BED, HEAVY BRIEF WITH URINE, YELLOW REMOVED, PT WAS CLEANED WITH SOAP AND WATER, THEN ZGUARD APPLIED. PT WAS LEFT OPEN TO AIR, AND BED WAS ADJUSTED FOR COMFORT. LATER NOTED PT RESTING WITH EYES CLOSED. THIS AM PT GOT OUT OF BED, AND PT WAS ASSISTED GETTING DRESSED AND BROUGHT TO DAY ROOM. ZERO S/S OF ACUTE DISTRESS NOTED, PT WILL CONTINUE TO BE MONITOR.
[2020-12-28 08:41] VITALS: BP 119/56
--- NOTE | 2020-12-28 12:08 | NUR ---
RT Progress Note- Throughout the last week, Memo has been more alert and likely to participate in recreational therapy groups. D/t her cognitive level, Memo's contributions to discussion remain limited, but she does enjoy responding to games or trivia questions. She is making appropriate social contact with peers in the [employer]; observed smiling and waving to peers on multiple occasions. GEOSCIENCE SPECIALIST will continue to encourage participation and progress.
--- NOTE | 2020-12-28 20:28 | NUR ---
0700 ASSUMED CARE OF PATIENT, PATIENT IN DAYROOM AT THAT TIME. PATIENT ALERT AND ORIENTED TO SELF ONLY. MEDICATIONS TAKEN WHOLE WITHOUT DIFFICULTY. AMB WITH WALKER AND ASSIST X1. PATIENT INCONTINENT AND VOIDING IN BRIEF. NO C/O PAIN, LS CLEAR, BS ACTIVE. PATIENT REPORTS LOOSE STOOL THIS AM. CALM AND COOPERATIVE. SMILES AT TIMES. PATIENT WORKED WITH PT AND OT TODAY. NO BEHAVIORS NOTED, DENIES SI/HI.
[2020-12-28 20:53] VITALS: BP 93/61
--- NOTE | 2020-12-29 04:01 | NUR ---
ASSESSMENT DOCUMENTED.PT AXO X1,FOLLOWS COMMANDS APPROPRIATELY.CO-OPERATIVE W/CARE.TAKES MEDS CRUSHED WITHOUT PROBLEMS.TOTAL ASSIST W/ADLS BY STAFF.NO CONCERNS NOTED THIS SHIFT AT THIS TIME.
[2020-12-29 08:53] VITALS: BP 85/58
[2020-12-29 09:09] VITALS: BP 81/59; BP 92/60
--- NOTE | 2020-12-29 15:08 | NUR ---
KARMA spoke with Joanna at [facility]. KARMA informed her about discussion from treatment team, that the Pt has made significant improvements working with PT/OT and skilled may longer be appropriate. Instead Pt should go to [place] memeory care. Joanna stated she would speak to the Pt's lucy about the matter and send referral to the memory care team. KARMA faxed updates to the facility.
--- NOTE | 2020-12-29 15:14 | NUR ---
KARMA called [employer] and left a message for a call back. THis call was to discuss memory care vs Rehab
--- NOTE | 2020-12-29 17:56 | NUR ---
0700 ASSUMED CARE OF PATIENT, PATIENT SITTING IN GERICHAIR SLEEPING. PATIENT FEEDS SELF WITH MIN ASSIST. ANB TO BR WITH ASSIST X1. PATIENT SMILES AND LAUGHS AT TIMES. NO C/O PAIN, LS CLEAR, BS ACTIVE. BP IN AM 85/58 PULSE 81 BP RECHECKED MANUALLY 92/60 IN LEFT ARM AND 81/59 IN RIGHT ARM. ZGUARD APPLIED TO WOUND ON COCCYX AREA. MEDICATION TAKEN WHOLE.
[2020-12-29 19:39] VITALS: BP 89/61
--- NOTE | 2020-12-30 04:52 | NUR ---
Assumed care on 12/29/20 @ 1900, seated on the couch on a chair alarm pad, watching tv and socializing with peers. A&Ox2-3. cannot give current date, but able to name the president correctly. Knows she is in a hospital, but gives [facility] as the hospital name. Denies SI/HI, AH/VH. Denies depression, reports some anxiety. Pleasant affect noted. Cooperative with care. Ambulates with x1 assist, incontinent of urine. Zguard applied to sacrum and gluteal cleft. Will continue to monitor for safety and comfort.
[2020-12-30 10:10] VITALS: BP 84/53
[2020-12-30 10:51] VITALS: BP 84/53
--- NOTE | 2020-12-30 11:21 | NUR ---
Assumed care from casino shift manager nurse at 0700. Pt is Alert and oriented x 2 and is very pleasant this am. Pt is Amb with Assistive device of Walker with SBA of 1. Pt tends to ambulate pretty fast with walker. Pt is continent of bowel and bladder and has voided x 3 so far today. Abd firm distended but non tender. Pt had two BM's today. Pt is interacting with other pt and sits in day room watching TV. Pt denies SI/HI, visual/auditory halluncinations. Pt continues to require Z guard to sacral area.
[2020-12-30 19:46] VITALS: BP 100/66
[2020-12-31 03:02] VITALS: BP 100/66
--- NOTE | 2020-12-31 03:07 | NUR ---
Assumed care on 12/30/20 @ 1900, seated on the couch and relaxing, chair alarm in place. Cooperative with care. Pleasant affect noted, is Alternately socializing with staff and peers and watching TV [employer] movie. Both continent and incontinent in brief. Loose stool noted today. Ambulates with walker and assist x1. Chair alarm or bed alarm used with patient, Ruvalcaba score of 75. Retired to bed @ HS, respirations even and unlabored. Bed in low position with bed alarm set. Will continue to monitor as per unit protocol for safety and comfort.
[2020-12-31 08:00] VITALS: BP 80/53
[2020-12-31 10:42] VITALS: BP 80/53
--- NOTE | 2020-12-31 11:11 | NUR ---
Assume care from information scientist nurse at 0700, pt resting in room, ready to get up and get ready for breakfast, pt is amb with walker but she has a tendency to forget her walker. She is supervision with her walker, Pt is alert and orient x 2, pleasant and cooperative and takes her medications without difficulty, Pt ate her breakfast and conversates with her peers, pt affect is pleasant and cooperative, she will occasionally joke with nurse. Pt is continent of bowel and bladder, receives Z guard to sacral/gluteal area. Abd soft/non tender, active bowel sounds x 4 Q. voiding x 3 so far this shift. will continue to monitor this shift.
[2020-12-31 11:20] VITALS: BP 90/50
--- NOTE | 2020-12-31 15:56 | NUR ---
SW was able to meet with the Pt in the dinning room. Pt reported mood as being good. Pt was able to talk about how proud she felt concerning her improvments with walking with a walker and feeling better overall. Pt became confused during the conversation. Pt began to call the SW by another name and asking SW to "tell Juan Steele". Pt was polite during this interaction. SW will continue to follow
[2020-12-31 19:02] VITALS: BP 96/68
--- NOTE | 2021-01-01 01:15 | NUR ---
AMBULATES WITH WALKER AND ASSIST X1 AND IS TOLERATING FAIR. DENIES PAIN. NO NNEDS VOICED. FREQUENT OBSERVATION.
[2021-01-01 09:16] VITALS: BP 83/59
--- NOTE | 2021-01-01 10:46 | NUR ---
ASSUMED PT CARE THIS AM. PT A&OX2. HAS NO COMPLAINTS OF PAIN. DENIES SI/HI. PATIENT HAS BEEN COOPERATIVE WITH STAFF AND HAS BEEN ABLE TO MAKE NEEDS KNOWN. PATIENT UP WITH A WALKER. TOOK MORNING MEDS WITHOUT ISSUE. AMBULATES WITH A WALKER. FALL PRECAUTIONS ARE IN PLACE.
--- NOTE | 2021-01-01 11:57 | NUR ---
Benny spoke with Joanna at [facility] concerning discharge. Joanna informed they are able to accept the Pt today on the [place] memory care unit. 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
--- NOTE | 2021-01-01 12:01 | NUR ---
KARMA contacted [facility], , to schedule a follow up appointment for the Pt. KARMA was informed the Pt would need to call to schedule the appointment with Dr. Mendoza. KARMA provided this information to the Pt's DPRamy CALDWELL to schedule the appointment. KARMA will follow up
--- NOTE | 2021-01-01 12:15 | NUR ---
Benny contacted Dr. Mendoza office, , to schedule a follow up appointment concerning Pt's GI bleed. BENNY was informed Sw could not schedule the appointment and the Pt need to call. BENNY informed the Pt's DPOA, Moncho, and advised him to call and schedule and appointment. Sharad stated he wanted Pt to get settled in at [facility] first before scheduling the appointment. Moncho stated he would inform the nursing team at [facility] concerning the matter. BENNY then contacted Dr. Mendoza's office aagin and left a message for a call back concerning scheduling a follow up appointment.
[2021-01-01] MEDS ORDERED: MIDODRINE HCL 55 M1 PO (13:01)
[2021-01-01] MEDS ORDERED: FLOMAX0.4 MG PO (13:01)
[2021-01-01] MEDS ORDERED: TRAZODONE HCL50 MG PO (13:02)
[2021-01-01] MEDS ORDERED: HALOPERIDOL 1 MG1 MG PO (13:02)
[2021-01-01] MEDS ORDERED: COLACE 100 MG100 MG PO (13:03)
[2021-01-01] MEDS ORDERED: LACTULOSE20 GM/30 M PO (13:03)
[2021-01-01] MEDS ORDERED: PROTONIX 20 MG20 M1 PO (13:04)
[2021-01-01] MEDS ORDERED: FOLIC ACID1 MG PO (13:05)
[2021-01-01] MEDS ORDERED: FLORINEF ACETA0.1 MG PO (13:05)
[2021-01-01] MEDS ORDERED: VITAMIN B-1100 M2 PO (13:06)
[2021-01-01] MEDS ORDERED: VITAMIN D3125 MC1 PO (13:06)
--- NOTE | 2021-01-02 08:21 | D ---
[facility] [place] [address] DISCHARGE SUMMARY Name: SKINNY CHRISTIE Room #: 519B-B DIS IN M.R.#: [id number] Admission: 12/14/20 Attend Phys: Adele Mustafa DO Discharge: 01/01/21 Date of : 59 Report #: [id number] THIS REPORT FOR: cc: Richard Abdul MD, Christopher B. MD Kerstein, Andrew H. DO ~ DOC #: [id number] ADELE Mustafa DO DATE OF SERVICE: 01/01/2021 INPATIENT PSYCHIATRIC DISCHARGE SUMMARY ATTENDING PSYCHIATRIST: Adele Mustafa DO. CHIEF VENDOR QUALITY: Dr. Pena. DISCHARGE DIAGNOSES: Major neurocognitive disorder, likely due to alcohol-related etiology. The patient also has an unspecified psychosis, which is improved and substance use disorder for alcohol severe. Additional medical morbidities per the hospitalist service were hematochezia, hemorrhoidal bleed, stable. She was seen by gastroenterology. They recommended outpatient colonoscopy. Severe protein calorie malnutrition with a BMI of 17 on admission and improved to 18.7 at discharge. Folic acid deficiency, borderline B12 levels. History of cerebrovascular accident requiring tracheostomy and PEG in the past. Hypotension, that she is on midodrine and started on Florinef for. The patient is discharging to Assisted Living memory care at [facility]. Psychiatric and medical care to be provided by receiving facility. DIET: For this patient is regular, but consistency is mechanical chopped. ACTIVITY: Walk, standby assist at present, recommending physical therapy for the patient. No wound care needed. SIGNIFICANT LABORATORY DATA: This admission, sodium 140, potassium 4.0, chloride 106, bicarbonate 27, anion gap 7, BUN 8, creatinine 0.5, estimated GFR 125, calcium 8.7, magnesium 2.0, total bilirubin 0.2, AST 58, ALT 44. All these labs were done on 12/24 most recently. Albumin was 2.7 on 12/23. Lipids this admission; triglycerides 115, cholesterol 166, LDL 108, HDL 35. B12 level 533, folate 7.6. TSH 1.422. Coagulation this admission from 12/21, PT 10.8, INR 0.99. On the CBC, white count 7.9, H and H 11.9 and 36.0, platelet count 253. Hemoglobin was stable this admission. Urinalysis was negative. RADIOLOGY: There was no radiology this admission. [address] [address] DISCHARGE SUMMARY Name: SKINNY CHRISTIE Room #: 519B-B [facility] IN M.R.#: [id number] Admission: 12/14/20 Attend Phys: Adele Mustafa DO Discharge: 01/01/21 Date of : 59 Report #: [id number] REASON FOR ADMISSION: The patient was a transfer from [facility] where she only spent 2 or 3 days and previously had been at [facility] for complicated alcohol withdrawal. The patient was referred for psychosis, not cooperating with rehabilitation, refusing cares. HOSPITAL COURSE: The patient was admitted to Geriatric Psychiatry Unit. Records were obtained from [facility]. She had a large workup there. The records indicated she would need rehabilitation. There was not much of a cognitive assessment that had been done. [facility] Mental Status Examination, I believe, the patient scored 11/30. We had family meetings with her . Discussed that this was very much a 50:50 kind of situation where the patient may have substantial recovery, but she may certainly not and may require memory care in an ongoing fashion. Her voiced his understanding of this. The patient had a negative Hemoccult on 12/22. In any event, during the admission, there was an incident of bright red blood nursing staff witnessed and as previously stated seen at bedside by gastroenterology, who declined, wanting to do an inpatient endoscopy, which she would have had to be transferred medically for, so therefore this is recommended to be completed outpatient, but most likely hemorrhoidal etiology for her bleeding. The patient improved quite a bit physically, she walked 250 feet min assist without a device at time of discharge. There also was a prolonged period as we had tried to get her into SNF at [facility] and I believe her insurance never approved that, so we had to switch gears for the long-term memory care. CONDITION AT DISCHARGE: Stable. PHYSICAL EXAMINATION: VITAL SIGNS: Temperature 36.1, pulse 84, respirations 17, BP was low at 83/59. Relatively, the patient was asymptomatic, O2 sat 100 percent. MUSCULOSKELETAL: Min assist gait, normal station. MENTAL STATUS EXAMINATION: This is a well-developed, slightly suboptimally nourished female appearing older than stated age. Attention limited. Concentration limited. Speech normal rate, volume, and tone. The patient was oriented to person, place, time and situation on day of discharge. Mood and affect were happy, congruent, euthymic. Denied SI, HI. Denied auditory, visual, or tactile hallucinations. Memory noted to be impaired. Insight fair to limited. Judgment fair. Fund of knowledge below average. Prognosis for this patient is guarded and nearly will depend on her abstinence from alcohol. She has not smoked in the near term, but that needs to be avoided as well. Nutrition efforts towards cognitive improvement. I would defer any neuropsych testing for 6-month period given her complicated alcohol withdrawal last month at [facility] [address] [place] [address] DISCHARGE SUMMARY Name: PRATIKSKINNY Room #: 519B-B DIS IN M.R.#: [id number] Admission: 12/14/20 Attend Phys: Adele Mustafa DO Discharge: 01/01/21 Date of : 59 Report #: [id number] [facility]. Ongoing psychiatric care is obviously recommended. DO FAITH Zuñiga/KEVYN/CHUYI <ELECTRONICALLY SIGNED> By: Adele Mustafa DO 01/02/21 08 [id number] Adele Mustafa DO /nt
== END 2021-01-01 13:50 | DRG 884 ==
LOC: SBH 15:37
PROVIDERS: Hospitalist; Internal Medicine; Nurse Practitioner; ADMIT Psychiatry & Neurology Psychiatry; ATTEND Psychiatry & Neurology Psychiatry
DX: F01.51 Vascular dementia, unspecified severity, with behavioral disturbance (principal); E43 Unspecified severe protein-calorie malnutrition; Z93.0 Tracheostomy status; Z68.1 Body mass index [BMI] 19.9 or less, adult; F10.27 Alcohol dependence with alcohol-induced persisting dementia; G93.40 Encephalopathy, unspecified; K92.1 Melena; F29 Unspecified psychosis not due to a substance or known physiological condition; Y90.9 Presence of alcohol in blood, level not specified; I95.9 Hypotension, unspecified; D53.9 Nutritional anemia, unspecified; F41.1 Generalized anxiety disorder; R15.9 Full incontinence of feces; E53.8 Deficiency of other specified B group vitamins; F32.9 Major depressive disorder, single episode, unspecified; Z86.73 Personal history of transient ischemic attack (TIA), and cerebral infarction without residual deficits; Z90.13 Acquired absence of bilateral breasts and nipples; Z90.49 Acquired absence of other specified parts of digestive tract; Z85.3 Personal history of malignant neoplasm of breast; Z88.0 Allergy status to penicillin
CPT/HCPCS: 10880